=== PATIENT | male | born 2000 | race African-American/Black ===

== ENCOUNTER 2025-03-08 23:42 | Inpatient (IN) | payer SELFPAY ==
[~2025-03-08] VITALS: Ht 185.4 cm; Wt 62.6 kg
[2025-03-08 23:51] VITALS: O2SAT 96
[2025-03-09 00:50] LABS: BASOPHILS % 1.3 % (0.0-2.0); EOSINOPHILS % 0.7 % (0.0-5.0); HEMATOCRIT. 44.8 % (42.0-52.0); HEMOGLOBIN. 14.8 g/dL (14.0-18.0); LYMPHOCYTES % 24.4 % (20.0-50.0); MEAN CORPUSCULAR HEMOGLOBIN 28.4 pg (28.0-32.0); MEAN CORPUSCULAR HGB CONC 33.1 g/dL (31.0-37.0); MEAN PLATELET VOLUME 8.9 fl (7.4-10.4); MONOCYTES % 5.1 % (2.0-8.0); NEUTROPHILS % 68.5 % (40.0-76.0); PLATELET 275 x1000/uL (130-400); RED BLOOD CELL COUNT 5.21 mill/uL (4.7-6.1); RED CELL DISTRIBUTION WIDTH 13.8 % (11.6-14.6); WHITE BLOOD COUNT 7.6 x1000/uL (4.5-11.0)
[2025-03-09 00:56] LABS: CHLORIDE 103 mEq/L (98-107); POTASSIUM 4.7 mEq/L (3.5-5.1); SODIUM 141 mEq/L (136-145)
[2025-03-09 00:57] LABS: CALCIUM 9.8 mg/dL (8.7-10.4); CARBON DIOXIDE 29 mEq/L (21-32)
[2025-03-09 01:02] LABS: ETHANOL BLOOD 69 mg/dL (<10); GLUCOSE 123 mg/dL (70-105); UREA NITROGEN BLOOD 8 mg/dL (9-23)
[2025-03-09 01:03] LABS: ALANINE AMINOTRANSFERASE 11 IU/L (10-49)
[2025-03-09 01:04] LABS: ALBUMIN 4.8 g/dL (3.2-4.8); ASPARTATE AMINOTRANSFERASE 18 IU/L (<34); BILIRUBIN DIRECT 0.2 mg/dL (<=3.0); BILIRUBIN TOTAL 0.5 mg/dL (0.1-1.0)
[2025-03-09 01:31] LABS: LACTIC ACID 4.3 mmol/L (0.4-2.0)
[2025-03-09] MEDS: SODIUM CHLORIDE 0.9% 1,000 ML IV ONE ×2 (01:47→02:17)
[2025-03-09] MEDS: ONDANSETRON HCL 4MG/2ML INJ IV STA (01:47)
[2025-03-09] MEDS: CEFTRIAXONE 1GM/50ML 50 ML IV ONE (01:58)
[2025-03-09] MEDS: AZITHROMYCIN 500MG/250ML 250 ML IV ONE (02:16)
[2025-03-09 06:59] LABS: CLARITY URINE CLEAR (CLEAR); COLOR URINE YELLOW (YELLOW); GLUCOSE URINE NEGATIVE (NEGATIVE); KETONES URINE NEGATIVE (NEGATIVE); LEUKOCYTE ESTERASE URINE 2+ (NEGATIVE); NITRITE URINE NEGATIVE (NEGATIVE); OCCULT BLOOD URINE NEGATIVE (NEGATIVE); PH URINE 8.5 (4.5-8.0); PROTEIN URINE TRACE (NEGATIVE); SPECIFIC GRAVITY URINE 1.022 (1.005-1.030)
[2025-03-09] MEDS ORDERED: NITROGLYCERIN 0.4MG TABLET SL SL PRN (07:15)
[2025-03-09 07:23] LABS: BACTERIA URINE FEW; RBC URINE NONE SEEN /hpf (0-2); SQUAMOUS EPITHELIAL CELL URINE 1+ /lpf (RARE/1+); YEAST URINE NONE SEEN
[2025-03-09] MEDS ORDERED: DOCUSATE SODIUM 100MG CAPSULE PO PRN (07:45)
[2025-03-09] MEDS ORDERED: ONDANSETRON HCL 4MG/2ML INJ IV PRN (07:45)
[2025-03-09] MEDS ORDERED: IPRATROPIUM/ALBUTEROL 0.5-3(2.5)MG/3ML NEB HHN PRN (07:45)
[2025-03-09] MEDS ORDERED: CLONIDINE 0.1MG TABLET PO PRN (07:45)
[2025-03-09] MEDS ORDERED: GUAIFENESIN 200MG/10ML SUGAR FREE UDC PO PRN (07:45)
[2025-03-09] MEDS ORDERED: MORPHINE SULFATE 2 MG/ML INJ (NOT FOR IM USE) IV PRN (07:45)
[2025-03-09] MEDS ORDERED: ACETAMINOPHEN 325MG TABLET PO PRN ×2 (07:45)
[2025-03-09] MEDS ORDERED: MAGNESIUM/ALUMINUM HYDROXIDE/SIMETHICONE 30ML UDC PO PRN (07:45)
[2025-03-09] MEDS ORDERED: HYDROCODONE/ACETAMINOPHEN 5/325MG TABLET PO PRN (07:45)
[2025-03-09] MEDS: ASPIRIN 325MG EC TABLET PO NR (07:46)
[2025-03-09] MEDS ORDERED: NALOXONE HCL 0.4MG/ML VIAL IV PRN (08:15)
[2025-03-09] MEDS: ENOXAPARIN 40MG/0.4ML SYR SUBCUT SCH (08:21)
[2025-03-09] MEDS: SODIUM CHLORIDE 0.9% 1,000 ML IV SCH (08:21)
[2025-03-09 08:42] LABS: TROPONIN I HIGH SENSITIVITY < 4 ng/L (3.0-53)
[2025-03-09 09:16] LABS: *AMPHETAMINES SCREEN URINE NEGATIVE (NEGATIVE); *BENZODIAZEPINES SCREEN URINE PRESUMPTIVE POSITIVE (NEGATIVE)
[2025-03-09] MEDS: THIAMINE HCL 100MG TABLET PO SCH (09:16)
[2025-03-09] MEDS: FOLIC ACID 1MG TABLET PO SCH (09:16)
[2025-03-09 09:17] LABS: *BARBITURATES SCREEN URINE NEGATIVE (NEGATIVE); *COCAINE SCREEN URINE NEGATIVE (NEGATIVE); CANNABINOID URINE SCREEN PRESUMPTIVE POSITIVE (NEGATIVE); ECSTASY MDMA SCREEN URINE NEGATIVE (NEGATIVE); METHADONE URINE SCREEN NEGATIVE (NEGATIVE); OPIATES URINE SCREEN NEGATIVE (NEGATIVE); PHENCYCLIDINE URINE SCREEN NEGATIVE (NEGATIVE)
[2025-03-09 10:45] LABS: TROPONIN I HIGH SENSITIVITY < 4 ng/L (3.0-53)
[2025-03-09 11:57] VITALS: BP 120/70; PULSE 69; RESP 20; TEMP 36.7
[2025-03-09 12:00] VITALS: BP 120/70; PULSE 69; RESP 20; TEMP 36.7; O2SAT 97
[2025-03-09 16:00] VITALS: BP 121/73; PULSE 74; RESP 20; TEMP 36.9; O2SAT 99
[2025-03-09 18:10] LABS: CREATINE KINASE MB FRACTION 0.5 ng/mL (0.5-3.6)
[2025-03-09 18:12] LABS: CREATINE KINASE 149 IU/L (46-171)
[2025-03-09 18:14] LABS: TROPONIN I HIGH SENSITIVITY < 4 ng/L (3.0-53)
[2025-03-09 20:00] VITALS: BP 120/84; PULSE 70; RESP 20; TEMP 36.6; O2SAT 95
== END 2025-03-09 23:57 | disposition left against medical advice (07) | DRG 249 ==
LOC: ER 23:42 → EDBEDREQ 03-09 01:04 → 6EST 03-09 01:15 → EDBEDREQ 03-09 01:16 → CANRESERV 03-09 06:51 → ENRESERV 03-09 06:51
PROVIDERS: ADMIT Internal Medicine; ATTEND Internal Medicine
DX: R11.2 Nausea with vomiting, unspecified (principal); F10.10 Alcohol abuse, uncomplicated; F19.10 Other psychoactive substance abuse, uncomplicated; R01.1 Cardiac murmur, unspecified; Y90.3 Blood alcohol level of 60-79 mg/100 ml; Z53.29 Procedure and treatment not carried out because of patient's decision for other reasons
CPT/HCPCS: 36415; 71045; 80048; 80076; 80305; 80320; 81003; 82550; 82553; 83605; 84484; 85025; 93005; 99291; A4606; J0456; J0696; J1650; J2405; J7030; G0480